=== PATIENT | male | born 1935 | race Caucasian/White ===

== ENCOUNTER → 2019-02-06 | Outpatient (CLI) | payer MEDICARE, BC ==
--- NOTE | 2019-02-06 16:59 | CARDNUC ---
[place] [address] CARDIAC NUCLEAR IMAGING REPORT Name: KINGBOB HARDIN Room: [facility]#: [id number] Admission: 02/06/19 Attend Phys: Serafin Anand MD Discharge: Date of : 39 Date of Service: 02/06/19 1659 Report #: [id number] THIS REPORT FOR: //name// APPROVED REPORT Study performed: 02/06/2019 14:40:21 Exam: Nuclear Stress Test Indication: Dyspnea Patient Location: Out-Patient Stress Tech: Celia Westbrook Stress Nurse: Ghada Painting RN Ht: 5 ft 7 in Wt: 161 lbs BSA: 1.84 m2 BMI: 25.21 Medical History Medical History: Angina, CAD s/p CABG, Fatigue, SOB, Weakness, ASCVD, Myelodysplastic Syndrome. Medications: No cardiac medications Allergies: No known drug allergies Cardiac Risk Factors: Age, SOB, ASCVD. Previous Cardiac Procedures: CABG Pretest Chest Pain Characteristics: No chest pain Exercise History: Sedentary Physical Disabilities: Generalized weakness/fatigue. Meds Held (24 hrs): None Stress Test Details Stress Test: Pharmacologic stress testing performed using 0.4 mg of regadenoson per 5 mL given IV over 10 seconds. Reason for pharmacologic stress test: physical limitation, generalized fatigue/weakness.. HR Resting HR: 75 bpm Max Heart Rate (APMHR): 139 bpm Max HR Achieved: 91 bpm Target HR (85% APMHR): 118 bpm % of APMHR: 65 Recovery HR: 84 bpm BP Resting BP: 150/71 mmHg Max BP: 138/65 mmHg ECG Resting ECG: [place] [address] CARDIAC NUCLEAR IMAGING REPORT Name: KINGRAULBRISSA LASHAWN Room: [facility]#: [id number] Admission: 02/06/19 Attend Phys: Serafin Anand MD Discharge: Date of : 39 Date of Service: 02/06/19 1659 Report #: [id number] Stress ECG: Sinus Rhythm ST Change: None Arrhythmia: None Recovery ECG: Sinus Rhythm Recovery ST Change: None Recovery Arrhythmia: None Clinical Reason for Termination: Completed protocol Stress Symptoms: Abdominal discomfort Exercise duration: 0 min 0 sec Exercise capacity: 1.00 METs The patient tolerated Lexiscan infusion without significant symptoms. Nurse Comments 83 year old male presented with recent HX of increased SOA and past CABG. Patient tolerated sitting Lexiscan well. Recovery unremarkable with PO caffeine. Patient escorted by staff to Nuclear Medicine for images. Patient stable with no complaints at that time. Stress ECG Conclusion The baseline 12-lead EKG shows sinus rhythm without significant ST or T wave abnormality. EKGs obtained during and post Lexiscan infusion show sinus rhythm with no significant ST or T wave changes when compared to baseline. There were no stress-induced arrhythmias. NM EXAM: Myocardial Perfusion REST/STRESS Resting Data Rest SPECT myocardial perfusion imaging was performed in supine position 30 minutes following the intravenous injection of 9.8 mCi of Tc-99m Sestamibi. Time of rest injection: 1320 The images were gated to evaluate regional wall motion and calculate left ventricular ejection fraction. Administration Route: IV Administration Site: Right AC Pharmacologic Stress Pharmacologic stress test was performed by injecting Regadenoson 0.4 mg IV push followed by the intravenous injection of 31.5 mCi of Tc-99m Sestamibi. Time of stress injection: 14:50 Administration Route: IV Administration Site: [place] [address] CARDIAC NUCLEAR IMAGING REPORT Name: KINGRAULBRISSA HARDIN Room: [facility]#: [id number] Admission: 02/06/19 Attend Phys: Serafin Anand MD Discharge: Date of : 39 Date of Service: 02/06/19 1659 Report #: [id number] Heart Rate at time of stress injection: 91 bpm. Gated Stress SPECT was performed 45 minutes after stress injection. The images were gated to evaluate regional wall motion and calculate left ventricular ejection fraction. Prone imaging was performed. Study Quality Study: Good Artifact: No artifact Study Data At rest, the left ventricular ejection fraction was 70%.. Post stress, the left ventricular ejection was 70%.. TID = 1.02. Perfusion Normal left ventricular perfusion. Wall Motion Normal left ventricular wall motion. Nuclear Conclusion ECG Findings: negative for ischemia Clinical Findings: negative for ischemia Nuclear Findings: negative for ischemia Exercise Capacity: not assessed Left Ventricular Function: normal Risk Study: low Myocardial perfusion images show no defect to suggest infarct or ischemia. Left ventricular systolic function is normal on gated studies. This is a low risk study. <Conclusion> The baseline 12-lead EKG shows sinus rhythm without significant ST or T wave abnormality. EKGs obtained during and post Lexiscan infusion show sinus rhythm with no significant ST or T wave changes when compared to baseline. There were no stress-induced arrhythmias. <ELECTRONICALLY SIGNED> By: Chris Medeiros MD, FACC 02/06/191658 58 58 Chris Medeiros MD, FACC /INF
== END ==
LOC: M.NUC 01-10 15:06
DX: R06.00 Dyspnea, unspecified (principal); I25.119 Atherosclerotic heart disease of native coronary artery with unspecified angina pectoris; Z95.1 Presence of aortocoronary bypass graft; Z86.79 Personal history of other diseases of the circulatory system